=== PATIENT | female | born 1935 | race Caucasian/White ===

== ENCOUNTER → 2020-12-18 | Outpatient (CLI) | payer OTHER, MEDICARE | LOC: HYPER 08:02 | PROVIDERS: ATTEND Emergency Medicine | DX: T81.33XA Disruption of traumatic injury wound repair, initial encounter (principal); S01.80XA Unspecified open wound of other part of head, initial encounter; L98.492 Non-pressure chronic ulcer of skin of other sites with fat layer exposed; K21.9 Gastro-esophageal reflux disease without esophagitis; Z87.891 Personal history of nicotine dependence; Z95.0 Presence of cardiac pacemaker; Z95.828 Presence of other vascular implants and grafts; W19.XXXA Unspecified fall, initial encounter; Y93.89 Activity, other specified; Y92.89 Other specified places as the place of occurrence of the external cause; Y99.8 Other external cause status ==